=== PATIENT | female | born 2000 | race Caucasian/White ===

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

== ENCOUNTER 2020-08-29 08:16 | Emergency (ER) | payer OTHER ==
[~2020-08-29] VITALS: Ht 167.6 cm; Wt 69.5 kg
[~2020-08-29 08:16] MED LIST changes: +PRED50TA PO
[2020-08-29] MEDS ORDERED: IV NORMAL SALINE 1,000ML 1,000 ML IV ONE (08:45)
[2020-08-29] MEDS ORDERED: MORPHINE SULFATE 4 MG/ML DISP.SYRIN. IV ONE (09:00)
[2020-08-29 09:01] LABS: U PREG PATIENT NEGATIVE (NEG)
--- NOTE | 2020-08-29 09:01 | PHYS DOC ---
Past History Past Medical History: Anxiety, Depression Past Surgical History: Other Additional Past Surgical Histo: WISDOM TEETH REMOVED, FINGER SURGERY, EYE SURGERY Smoking: Non-smoker Alcohol Use: None Drug Use: None Adult General Chief Complaint Chief Complaint: FLANK PAIN [facility] HPI Patient is a 19-year-old female who presents to the emergency room complaining of right flank pain, hematuria, dysuria, urinary frequency. Patient states that yesterday she was really tired and had some mild back pain. She thought that this was due to just being worn out. She did not have any other associated symptoms. This morning she was woken up by the. In her right flank. She got up to urinate and started having dysuria and states that she urinated what look like straight blood. She was able to lay back down and fall back asleep but was again awakened by the pain. She states that this time the pain was unbearable. She called her primary care physician's office who told her to come to the emergency room for possible kidney stone. Patient states the pain was sharp in nature. She continues to have constant pain but it is not as bad as it previously was. She has not tried to take anything for the pain. Review of Systems Review of Systems Complete ROS is negative unless otherwise documented in HPI Current Medications Current Medications Current Medications Medications (Trade) Dose Ordered Sig/Amarilis Start Time Stop Time Status Last Admin Dose Admin Ketorolac Tromethamine (Toradol 30mg Vial) 30 mg 1X ONCE 08/29/20 08:45 08/29/20 08:46 UNV Morphine Sulfate (Morphine 4mg Syringe) 4 mg 1X ONCE 08/29/20 09:00 08/29/20 09:01 Sodium Chloride 1,000 ml @ 1,000 mls/hr 1X ONCE 08/29/20 08:45 08/29/20 09:44 Allergies Allergies Allergies Coded Allergies Type Severity Reaction Last Updated Verified latex Allergy Unknown 08/23/18 Yes Physical Exam Physical Exam General: Awake, alert, NAD. Well Nourished, well hydrated. Cooperative HEENT: Atraumatic, EOMI, PERRL, airway patent, moist oral mucosa Neck: Supple, trachea midline Respiratory: CTA bilaterally, normal effort, no wheezing/crackles CV: RRR, no murmur, cap refill <2 GI: Soft, nondistended, right-sided CVA tenderness, suprapubic tenderness MSK: No obvious deformities Skin: Warm, dry, intact Neuro: A&O x3, speech NL, sensory and motor grossly intact, no focal deficits Psych: Normal affect, normal mood, not suicidal or homicidal Current Patient Data Vital Signs Vital Signs Date Time Temp Pulse Resp B/P (MAP) Pulse Ox O2 Delivery O2 Flow Rate FiO2 08/29/20 08:25 98.1 103 16 118/78 (91) 98 Room Air EKG EKG [] Radiology/Procedures Radiology/Procedures [] Heart Score C/O Chest Pain: N/A Risk Factors: Risk Factors: DM, Current or recent (<one month) smoker, HTN, HLP, family history of CAD, obesity. Risk Scores: Risk Factors: DM, Current or recent (<one month) smoker, HTN, HLP, family history of CAD, obesity. Course & Med Decision Making Course & Med Decision Making Pertinent Labs and Imaging studies reviewed. (See chart for details) Patient is 19-year-old previously healthy female presents to the emergency room complaining of right flank pain, hematuria, dysuria, suprapubic pain. Patient likely has pyelonephritis. It is possible that she could have a kidney stone and CT abdomen pelvis without contrast will be done. Patient given fluids, Toradol, morphine for symptoms. She is overall very well-appearing. CT is negative for kidney stone. Patient does appear to have a UTI. This is likely related to pyelonephritis. We will place the patient on antibiotics. She did receive Rocephin. Patient's test results and vitals while in the ED were fully reviewed and discussed with the patient. Patient is stable and at this time does not need admission to the hospital. We have discussed strict return precautions and the importance of following up with their Primary Care Physician. Patient stated understanding and was given an opportunity to ask any questions. Patient is in agreement with plan. Dragon Disclaimer Dragon Disclaimer This electronic medical record was generated, in whole or in part, using a voice recognition dictation system. Departure Departure: Impression: Primary Impression: Pyelonephritis Disposition: 01 DC HOME SELF CARE/HOMELESS Condition: STABLE Referrals: ASHA DE LA ROSA MD (PCP) Patient Instructions: Pyelonephritis, Adult Scripts Phenazopyridine Hcl (PYRIDIUM) 200 Mg Tablet 1 TAB PO TID for urinary discomfort for 3 Days, #9 TAB 0 Refills Prov: CHIQUIS ALEMAN MD 08/29/20 Cephalexin (CEPHALEXIN) 500 Mg Capsule 1 CAP PO BID for UTI, #20 CAP Prov: CHIQUIS ALEMAN MD 08/29/20 CHIQUIS ALEMAN MD Aug 29, 2020 09:01
[2020-08-29 09:07] LABS: CLARITY,URINE CLEAR; COLOR,URINE AMBER
[2020-08-29 09:08] LABS: BILIRUBIN,URINE NEG (NEG); GLUCOSE,URINE NEG (NEG); UROBILINOGEN,URINE 0.2 mg/dL (0.2 mg/dL)
[2020-08-29 09:13] LABS: NITRITE,URINE POS (NEG)
[2020-08-29 09:14] LABS: BACTERIA,URINE FEW /HPF (0-FEW); SQUAMOUS EPITHELIAL CELL,UR OCC /LPF
[2020-08-29] MEDS ORDERED: KETOROLAC 30 MG/ML VIAL. IVP ONE (09:15)
[2020-08-29 09:28] LABS: BASO % 0 % (0-3); EOS # 0.1 x10^3/uL (0.0-0.7); EOS % 1 % (0-3); HEMATOCRIT 42.5 % (36.0-47.0); LYMPH # 1.7 x10^3/uL (1.0-4.8); LYMPH % 15 % (24-48); MEAN CORPUSCULAR HEMOGLOBIN 28 pg (25-35); MEAN CORPUSCULAR HGB CONC 33 g/dL (31-37); MEAN CORPUSCULAR VOLUME 85 fL (79-100); MONO # 0.6 x10^3/uL (0.0-1.1); MONO % 6 % (0-9); NEUT # 8.5 x10^3uL (1.8-7.7); NEUT % 78 % (31-73); PLATELET COUNT 370 x10^3/uL (140-400); RED CELL DISTRIBUTION WIDTH 12.3 % (11.5-14.5); WHITE BLOOD COUNT 10.9 x10^3/uL (4.0-11.0)
--- NOTE | 2020-08-29 09:38 | RAD ---
CT ABDOMEN+PELVIS WO INDICATION: r flank pain / Spl. Instructions: / History: EXAM: Noncontrast CT of the abdomen and pelvis. Coronal and sagittal reformatted images were perform ed. PQRS compliance statement: One or more of the following individualized dose reduction techniques were utilized for this examinat ion: 1. Automated exposure control 2. Adjustment of the mA and/or kV according to patient size 3. Use of iterative reconstruction technique COMPARISON: None FINDINGS: No free air, free fluid, or fluid collection. Lower chest: The visualized lower lungs are aerated. No pleural or pericardial effusion. ABDOMEN: Liver: The noncontrast liver is homogeneous in attenuation. Gallbladder and biliary: Normal gallbladder without radiopaque stone. Normal caliber bile ducts. Spleen: Normal spleen. Pancreas: The noncontrast pancreas is homogeneous in attenuation without peripancreatic inflammatory changes. Adrenal glands: Normal adrenal glands. Kidneys and ureters: No opaque urinary calculi. Normal kidneys and ureters. GI tract: The stomach is decompressed and poorly evaluated. Normal caliber small bowel and colon. Nor mal appendix. Vascular structures: Normal caliber abdominal aorta. Lymph nodes: No lymphadenopathy in the abdomen or pelvis. PELVIS: Genitourinary system: Normal bladder. Uterus is present. SKELETAL STRUCTURES AND SOFT TISSUES: No fracture or destructive lesion in the visualized skeleton. IMPRESSION: No acute findings. No hydronephrosis or opaque urinary calculi. Normal appendix. Electronically signed by: Silver Weinberg MD (08/29/2020 9:36 AM) [id number]
[2020-08-29 09:44] LABS: CALCIUM 9.4 mg/dL (8.5-10.1); CREATININE 0.9 mg/dL (0.6-1.0); GFR 80.7; POTASSIUM 4.1 mmol/L (3.5-5.1)
[2020-08-29 09:50] LABS: ALBUMIN 3.9 g/dL (3.4-5.0); ALBUMIN/GLOBULIN RATIO 1.1 (1.0-1.7); TOTAL BILIRUBIN 0.5 mg/dL (0.2-1.0); TOTAL PROTEIN 7.6 g/dL (6.4-8.2)
[2020-08-29] MEDS ORDERED: PHEN-318 PO (09:58)
[2020-08-29] MEDS ORDERED: CEPH500C PO (09:58)
[2020-08-29] MEDS ORDERED: cefTRIAXone SODIUM 1 GM VIAL ONE (10:02)
[2020-08-29] MEDS ORDERED: IV NORMAL SALINE 50ML 50 ML ONE (10:02)
[2020-08-29 10:23] VITALS: BP 118/70
== END 2020-08-29 10:24 | disposition home or self-care (01) ==
LOC: ER 08:16
DX: N12 Tubulo-interstitial nephritis, not specified as acute or chronic (principal); Z91.040 Latex allergy status
CPT/HCPCS: 36415; 74176; 80053; 81001; 81025; 85025; 87086; 96361; 96365; 96375; 99284; J0696; J1885; J7030

== ENCOUNTER 2021-05-17 13:01 | Emergency (ER) | payer OTHER ==
[~2021-05-17] VITALS: Ht 167.6 cm; Wt 69.5 kg
[~2021-05-17 13:01] MED LIST changes: +CEPH500C PO; +PHEN-318 PO
[2021-05-17 13:13] VITALS: BP 118/70
[2021-05-17] MEDS ORDERED: IV NORMAL SALINE 1,000ML 1,000 ML IV ONE (13:30)
--- NOTE | 2021-05-17 13:30 | PHYS DOC ---
Past History Past Medical History: Anxiety, Depression Past Surgical History: Other Additional Past Surgical Histo: WISDOM TEETH REMOVED, FINGER SURGERY, EYE SURGERY Smoking: Non-smoker Alcohol Use: None Drug Use: None General Adult EDM: Chief Complaint: COUGH HPI: HPI: Patient is a 20-year-old female who presents to the emergency department for loss of voice, shortness of breath, vomiting, productive cough with blood tinged sputum that started 2 days ago. Patient reports that she was diagnosed with influenza 2 days ago. Patient denies any fevers, chest pain, blood thinner use. Patient's vital signs are stable and she is in no acute distress. Review of Systems: Review of Systems: 14 body systems of the review of systems have been reviewed. See HPI for p ertinent positive and negative responses, otherwise all other systems are negative, nonpertinent or noncontributory Allergies: Allergies: Allergies Coded Allergies Type Severity Reaction Last Updated Verified latex Allergy Unknown 08/23/18 Yes Physical Exam: PE: Constitutional: Well developed, well nourished, no acute distress, non-toxic appearance. [] HENT: Normocephalic, atraumatic, bilateral external ears normal, oropharynx moist, no oral exudates, no tonsillar enlargement, erythematous oropharynx, no oral exudates, uvula midline, no trismus, loss of voice, nose normal. [] Eyes: PERRL, EOMI, conjunctiva normal, no discharge. [] Neck: Normal range of motion, no tenderness, supple, no stridor. [] Cardiovascular:Heart rate regular rhythm, no murmur [] Lungs & Thorax: Bilateral breath sounds clear to auscultation [] Abdomen: Bowel sounds normal, soft, no tenderness, no masses, no pulsatile m asses. [] Skin: Warm, dry, no erythema, no rash. [] Back: Normal range of motion Extremities: No tenderness, no cyanosis, no clubbing, ROM intact, no edema. [] Neurologic: Alert and oriented X 3, normal motor function, normal sensory function, no focal deficits noted. [] Psychologic: Affect normal, judgement normal, mood normal. [] Current Patient Data: Vital Signs: Vital Signs Date Time Temp Pulse Resp B/P (MAP) Pulse Ox O2 Delivery O2 Flow Rate FiO2 05/17/21 13:13 98.2 106 16 118/70 (86) 97 Room Air EKG: EKG: [] Radiology/Procedures: Radiology/Procedures: []PROCEDURE: PORTABLE CHEST 1V EXAM: Chest, single view. HISTORY: Cough. COMPARISON: 07/15/2017 FINDINGS: Frontal views of the chest are obtained. There is no infiltrate, pleural effusion or pneumothorax. The heart is normal in size. IMPRESSION: No acute pulmonary finding. Electronically signed by: Christine Roland MD (05/17/2021 1:51 PM) [id number] DICTATED AND SIGNED BY: CHRISTINE ROLAND MD DATE: 05/17/21 1350 CC: CHRISTINE DE LA ROSA MD; KANWAL SERRANO AROMATHERAPIST ~MTH0 0 Heart Score: C/O Chest Pain: N/A Risk Factors: Risk Factors: DM, Current or recent (<one month) smoker, HTN, HLP, family history of CAD, obesity. Risk Scores: Score 0 - 3: 2.5% MACE over next 6 weeks - Discharge Home Score 4 - 6: 20.3% MACE over next 6 weeks - Admit for Clinical Observation Score 7 - 10: 72.7% MACE over next 6 weeks - Early Invasive Strategies Course & Med Decision Making: Course & Med Decision Making Pertinent Labs and Imaging studies reviewed. (See chart for details) [] Patient presents to the emergency department today for loss of voice, blood- tinged productive cough, shortness of breath, nausea and vomiting. Patient is positive for influenza. Her vital signs are stable, heart rate 99, 98% on room air. Patient is in no acute distress. A chest x-ray was performed to rule out pneumonia. It was negative for any acute findings. Patient is likely experiencing bronchitis/laryngitis. Patient advised to perform symptomatic and supportive care at home. Increase fluids, rest, Tylenol/ibuprofen for any pain or fevers. Patient be discharged with cough medication and nausea medication. I discussed with patient all findings and diagnostic testing as well as the need to follow-up with PCP for further evaluation and treatment or return to the ER if any new or worsening symptoms. Strict return precautions were also discussed at length. Patient voiced understanding and agreement with the plan. Patient is hemodynamically stable at the time of disposition. Dragon Disclaimer: Dragon Disclaimer: This electronic medical record was generated, in whole or in part, using a voice recognition dictation system. Departure Departure: Impression: Primary Impression: Bronchitis Disposition: HOME / SELF CARE / HOMELESS Condition: GOOD Referrals: CHRISTINE DE LA ROSA MD (PCP) Patient Instructions: Bronchitis, Laryngitis, [id number] Additional Instructions: You were seen in the emergency department for loss of voice, blood-tinged sputum, shortness of breath and vomiting. Chest x-ray was performed to rule out pneumonia. It did not show any acute findings. You are likely experiencing bronchitis secondary to your influenza infection. You are being discharged home with cough medication and an albuterol inhaler that you can use when you become short of breath. Please increase your fluids and rest. Please take Tylenol and/or ibuprofen for any pain or fevers. Follow-up with your primary care provider tomorrow regarding your ER visit. Please return to the emergency department if you develop high fevers refractory to treatment, worsening of your shortness of breath, intractable nausea or vomiting, chest pain, weakness. Scripts Benzonatate (BENZONATATE) 200 Mg Capsule 1 CAP PO PRN TID PRN for cough for 7 Days, #21 CAP 0 Refills Prov: KANWAL SERRANO APRN 05/17/21 Albuterol Sulfate (PROAIR HFA INHALER) 8.5 Gm Hfa.aer.ad 2 PUFF IH PRN Q4-6HRS PRN for wheezing for 21 Days, #1 INHALER 0 Refills as needed for wheezing Prov: KANWAL SERRANO APRN 05/17/21 KAWNAL SERRANO APRN May 17, 2021 13:30
--- NOTE | 2021-05-17 13:53 | RAD ---
EXAM: Chest, single view. HISTORY: Cough. COMPARISON: 07/15/2017 FINDINGS: Frontal views of the chest are obtained. There is no infiltrate, pleural effusion or pneumo thorax. The heart is normal in size. IMPRESSION: No acute pulmonary finding. Electronically signed by: Christine Roland MD (05/17/2021 1:51 PM) [id number]
[2021-05-17] MEDS ORDERED: BENZ200C47 PO ×2 (14:00→14:09)
[2021-05-17] MEDS ORDERED: ALBU2.5V8 IH ×2 (14:00→14:09)
== END 2021-05-17 14:19 | disposition home or self-care (01) ==
LOC: ER 13:01
DX: J40 Bronchitis, not specified as acute or chronic (principal); Z91.040 Latex allergy status
CPT/HCPCS: 71045; 99283